=== PATIENT | female | born 1985 | race African-American/Black ===

== ENCOUNTER 2017-03-18 07:01 | Emergency (ER) | payer MEDICAID ==
[~2017-03-18] VITALS: Ht 182.9 cm; Wt 72.7 kg
[2017-03-18 07:28] VITALS: BP 134/78
[2017-03-18] MEDS ORDERED: PROPARACAINE HCL 0.5% 15 ML OPHTHALMIC SOLUTION OD ONE (07:30)
[2017-03-18] MEDS ORDERED: FLUORESCEIN SODIUM 1 MG STRIP ONE (07:33)
== END 2017-03-18 07:58 | disposition home or self-care (01) ==
LOC: EMS 07:03
DX: H20.9 Unspecified iridocyclitis (principal); F17.210 Nicotine dependence, cigarettes, uncomplicated
CPT/HCPCS: 99283

== ENCOUNTER 2017-06-18 23:19 | Emergency (ER) | payer MEDICAID | END 2017-06-19 01:00 | disposition left against medical advice (07) | LOC: EMS 23:20 | DX: Z53.21 Procedure and treatment not carried out due to patient leaving prior to being seen by health care provider (principal) ==